=== PATIENT | male | born 1990 | race Caucasian/White ===

== ENCOUNTER 2017-02-26 11:13 | Emergency (ER) | payer OTHER ==
[~2017-02-26] VITALS: Wt 76.0 kg
[2017-02-26] MEDS ORDERED: MECLIZINE 12.5 MG TAB PO ONE (13:30)
[2017-02-26] MEDS ORDERED: ACETAMINOPHEN 325 MG TAB PO ONE (13:30)
[2017-02-26] MEDS ORDERED: ONDANSETRON 4 MG TAB PO ONE (13:30)
--- NOTE | 2017-02-26 13:30 | ERD ---
ER Documentation Chief Complaint Date/Time DATE: 02/26/17 TIME: 13:27 Chief Complaint FEVER X 2 WEEKS HPI Patient is a 26-year-old male who presents to the ED with headache, dizziness and nausea. He states that for the last 2 weeks he has had these symptoms. He states that the room is spinning when he moves his head. Which causes him to be nauseous and he vomits. He denies blurry vision or neck pain or stiffness. Denies cough, shortness of breath or chest pain. He also states that he has a history of migraines however he states that he has headache on the right side of his face and head. He states that he has never had this pain in the past and does not state that this is similar to the headaches that he has had in the past. He has not tried any medication for his symptoms. Denies leg pain or swelling. No other complaints. ROS All systems reviewed and are negative except as per history of present illness. Medications Home Meds Active Scripts Acetaminophen/Aspirin/Caffeine* (Excedrin*) 1 Tab Tab, 1 TAB PO BID for 30 Days , TAB Prov:SACHA SERRATO PA-C 02/26/17 Ondansetron Hcl* (Zofran*) 4 Mg Tablet, 4 MG PO Q6H for NAUSEA AND/OR VOMITING, #30 TAB Prov:SACHA SERRATO PA-C 02/26/17 Meclizine Hcl* (Antivert*) 12.5 Mg Tab, 12.5 MG PO Q6H Y for DIZZINESS, #20 TAB Prov:SACHA SERRATO PA-C 02/26/17 Allergies Allergies: Coded Allergies: No Known Allergy (Unverified , 02/26/17) PMhx/Soc Medical and Surgical Hx: pt denies Medical Hx, pt denies Surgical Hx History of Surgery: No Anesthesia Reaction: No Hx Neurological Disorder: No Hx Respiratory Disorders: No Hx Cardiac Disorders: No Hx Psychiatric Problems: No Hx Miscellaneous Medical Probl: No Hx Alcohol Use: No Hx Substance Use: No Hx Tobacco Use: No Smoking Status: Current every day smoker Physical Exam Vitals Vital Signs Date Time Temp Pulse Resp B/P Pulse Ox O2 Delivery O2 Flow Rate FiO2 02/26/17 11:19 98.1 92 18 136/81 99 Physical Exam GENERAL: Well-developed, well-nourished male. Appears in no acute distress. HEAD: Normocephalic, atraumatic. EYES: Pupils are equally reactive bilaterally. EOMs grossly intact. No conjunctival erythema. ENT: Moist mucous membranes. No uvula deviation. No kissing tonsils. No exudates. NECK: Supple. No lymphadenopathy or thyromegaly. No meningismus. negative kernig. negative brudinski. LUNG: Clear to auscultation bilaterally. No rhonchi, wheezing, rales or coarse breath sounds. HEART: Regular rate and rhythm. No murmurs, rubs or gallops. ABDOMEN: No scars, ecchymosis or rashes noted. Soft, nontender, and nondistended. Positive bowel sounds in all four quadrants. No rebound tenderness , no guarding. (-) McBurneys point tenderness. No CVA tenderness. BACK: No midline tenderness. Extremities: Equal pulses bilaterally. No peripheral clubbing, cyanosis or edema. No unilateral leg swelling. NEUROLOGIC: Alert and oriented. Moving all four extremities. 5/5 strength in all extremities. Normal speech. Steady gait. Cranial nerves II through XII intact no ataxia. Negative Romberg test SKIN: Normal color. Warm and dry. No rashes or lesions. Capillary refill < 2 seconds Results 24 hrs Current Medications Medications (Trade) Dose Ordered Sig/Ruby Route PRN Reason Start Time Stop Time Status Last Admin Dose Admin Meclizine HCl (Antivert) 12.5 mg ONCE ONCE PO 02/26/17 13:30 02/26/17 13:31 DC 02/26/17 13:50 Acetaminophen (Tylenol Tab) 650 mg ONCE ONCE PO 02/26/17 13:30 02/26/17 13:31 DC 02/26/17 13:50 Ondansetron HCl (Zofran Tab) 4 mg ONCE ONCE PO 02/26/17 13:30 02/26/17 13:52 DC Ondansetron HCl (Zofran Odt) 4 mg ONCE STAT ODT 02/26/17 13:51 02/26/17 13:52 DC 02/26/17 13:52 Procedures/MDM ER COURSE: I kept the patient and/or family informed of laboratory and diagnostic imaging results throughout the emergency room course. MEDICATIONS Meclizine, Zofran, Tylenol tolerated well with no adverse reaction. IMAGING STUDIES [facility] [id number] [id number] Radiology Main Line: [phone] DIAGNOSTIC IMAGING REPORT Patient: MELANI FERNANDEZ : 1990 Age: 26 Sex: M MR #: [id number] DOS: 02/26/17 1315 Ordering MD: SACHA SERRATO PA-C Location: FT Room/Bed: PROCEDURE: CT Brain without contrast. CLINICAL INDICATION: Headache and dizziness. TECHNIQUE: A CT of the brain without contrast was performed utilizing axial sections from the skull base through the vertex. The patient was scanned without intravenous contrast enhancement. Sagittal and coronal reformatted images were obtained using the data from the axial images. Total exam DLP is 817.78 mGy-cm. CTDIvol is 49.90 mGy. One or more of the following dose reduction techniques were used: Automated exposure control, adjustment of the mA and/or kV according to patient size, use of iterative reconstruction technique. COMPARISON: None available FINDINGS: There is normal foy-white matter differentiation. The ventricles and cisterns are normal. There is no intracranial hemorrhage or space-occupying lesion. There is no skull fracture or lytic lesion. IMPRESSION: 1. Normal noncontrast CT scan of the brain. 2. No intracranial hemorrhage. RPTAT: QQ .Tony Gillis MD, MD Date Time Electronically viewed and signed by .Tony Gillis MD, MD on 02/26/2017 13:58 .R/ CC: SACHA SERRATO PA-C EKG performed, read by Dr Boyce 78bpm, normal sinus rhythm, normal axis, no acute ST segment changes, no T wave inversion MEDICAL DECISION MAKING: This is a 26 year old male who presents with headache, dizziness x 2 weeks. Vital signs were reviewed. Patient is afebrile. Patient is not hypoxic. Patient likely has benign positional vertigo. His vertigo was reproducible upon examination. Other differential diagnosis included but not limited to Mni re's disease, acoustic neuroma, labyrinthitis,. Low suspicion for intracranial hemorrhage, meningitis, intracranial mass, concussion, temporal arteritis, stroke, elevated intracranial pressure, seizure. His CAT scan is read by radiologist was unremarkable. I reexamined patient and he stated improvement in symptoms after the medication. DISCHARGE: At this time, patient is stable for discharge and outpatient management with no new complaints during the ER course. Patient was sent home with meclizine, Zofran and Tylenol and instructions on how to do the Ravi maneuver.. Patient will be discharged home with instructions to recheck for new or worsening symptoms such as fever, nausea, weakness, LOC and to follow up with primary care in the next 1-2 days. Patient was advised to return to the ER for any new or worsening symptoms. Plan was discussed and patient and/or family understands and agrees. Home instructions were given. Departure Diagnosis: Primary Impression: Dizziness Condition: Stable SACHA SERRATO PA-C Feb 26, 2017 13:30
[2017-02-26] MEDS ORDERED: ONDANSETRON (ODT) 4 MG TAB ODT STA (13:51)
--- NOTE | 2017-02-26 13:58 | RADRPT ---
PROCEDURE: CT Brain without contrast. CLINICAL INDICATION: Headache and dizziness. TECHNIQUE: A CT of the brain without contrast was performed utilizing axial sections from the skul l base through the vertex. The patient was scanned without intravenous contrast enhancement. Sagitta l and coronal reformatted images were obtained using the data from the axial images. Total exam DLP is 817.78 mGy-cm. CTDIvol is 49.90 mGy. One or more of the following dose reduction techniques we re used: Automated exposure control, adjustment of the mA and/or kV according to patient size, use o f iterative reconstruction technique. COMPARISON: None available FINDINGS: There is normal foy-white matter differentiation. The ventricles and cisterns are normal. There is no intracranial hemorrhage or space-occupying lesion. There is no skull fracture or lytic lesion. IMPRESSION: 1. Normal noncontrast CT scan of the brain. 2. No intracranial hemorrhage. RPTAT: QQ .Tony Gillis MD, MD Date Time Electronically viewed and signed by .Tony Gillis MD, on 02/26/2017 13:58 .R/
[2017-02-26] MEDS ORDERED: ONDA4TAB8 PO (14:34)
[2017-02-26] MEDS ORDERED: MECL12.574 PO (14:34)
[2017-02-26] MEDS ORDERED: EXCED PO (14:35)
== END 2017-02-26 14:44 | disposition home or self-care (01) ==
LOC: E/R 11:13 → FTE 14:44
DX: R42 Dizziness and giddiness (principal); R11.2 Nausea with vomiting, unspecified; F17.210 Nicotine dependence, cigarettes, uncomplicated
CPT/HCPCS: 70450; 93005; Z7502; Z7610